=== PATIENT | male | born 1955 | race Caucasian/White ===

== ENCOUNTER 2020-10-09 19:34 | Observation (INO) | payer OTHER, SELFPAY ==
[2020-10-09] VITALS (7 sets, daily range): BP systolic 106–140; BP diastolic 60–83; PULSE 51–79; RESP 14–22; TEMP 37.2; O2SAT 93–98; BMI 40.1
--- NOTE | 2020-10-09 20:29 | EKG12_ITS ---
Test Reason : COUGH Blood Pressure : / mmHG Vent. Rate : 070 BPM Atrial Rate : 070 BPM P-R Int : 196 ms QRS Dur : 102 ms QT Int : 426 ms P-R-T Axes : 041 001 017 degrees QTc Int : 460 ms Normal sinus rhythm Normal ECG Confirmed by CAROLIN MCCONNELL, TRUE ([id number]), online editor INES MAHMOOD ([id number]) on 10/14/2020 10:52:24 AM Referred By: PITER Confirmed By:TRUE COE MD
--- NOTE | 2020-10-09 20:47 | ED.RN ---
NO OLD EKGS IN MUSE
[2020-10-09 21:14] LABS: Absolute Lymphocyte Count 0.85 X10^3/uL (0.83-4.51); Absolute Neutrophil Count 4.8 X10^3/uL (2.0-7.7); Basophil# 0.01 X10^3/uL; Basophil% 0.2 % (0-1); Eosinophil# 0.09 X10^3/uL; Eosinophils% 1.4 % (0-5); Hematocrit 40.2 % (40-54); Hemoglobin 13.2 g/dL (13.0-16.5); Lymphocyte # 0.85 X10^3/ul (4.0); Lymphocyte % 13.1 % (19-41); Mean Corp Hgb Conc 32.8 g/dL (32-36); Mean Corpuscular Hgb 30.5 pg (27.0-32.0); Mean Corpuscular Volume 92.8 fL (80-94); Mean Platelet Vol. 10.2 fl (6.2-12.0); Monocyte# 0.72 X10^3/uL; Monocyte% 11.1 % (0-10); NRBC Flagged by Analyzer 0 % (0-5); Neutrophil # 4.76 X10^3/uL (2.7-7.7); Neutrophil % 73.6 % (47-70); Platelet Count 228 K/mm3 (150-450); RBC Distribution Width CV 12.3 % (11.6-14.6); RBC Distribution Width SD 42.6 fl (35.1-43.9); Red Blood Count 4.33 M/mm3 (4.6-6.2); White Blood Count 6.5 K/mm3 (4.4-11.0)
[2020-10-09 21:35] LABS: ALB/GLOB Ratio 0.9 RATIO (0.9-2.4); AST(SGOT) 47 U/L (15-37); Alanine Aminotransfer ALT/SGPT 72 U/L (16-61); Albumin, Serum 3.3 g/dL (3.2-5.0); Alkaline Phosphatase 90 U/L (45-117); Anion Gap 5 (5-15); BUN 13 mg/dL (7-18); BUN/Creat Ratio 15.5 RATIO (10-20); Calcium,Total 8.5 mg/dL (8.5-10.1); Chloride 104 mmol/L (98-107); Creatinine, Serum 0.84 mg/dL (0.70-1.30); EST Glomerular Filtration Rate 98 mL/min (>60); Est Glom Filt Rate - Afr Amer 118 mL/min (>60); Estimated Creatinine Clearance 91.73 ml/min; Globulin 3.8 g/dL (2.2-4.2); Glucose 136 mg/dL (74-106); Potassium 3.6 mmol/L (3.5-5.1); Protein, Total 7.1 g/dL (6.4-8.2); Sodium Level 137 mmol/L (136-145)
--- NOTE | 2020-10-09 21:37 | RAD_ITS ---
INDICATION: cough EXAMINATION/TECHNIQUE: X-RAY - XR Chest 1 View COMPARISON: None. FINDINGS: Bilateral interstitial and airspace opacities. The cardiomediastinal silhouette is unremarkable. No pleural effusion or pneumothorax. No acute osseous abnormalities. RAD/Chest 1 View (Portable) IMPRESSION: Bilateral interstitial and airspace opacities concerning for pneumonia. Electronically Signed: Del Chow MD at 22:08 EDT Tel , Service support ,
[2020-10-09 21:47] LABS: Lactic Acid 1.7 mmol/L (0.4-1.9)
[2020-10-10] VITALS (11 sets, daily range): BP systolic 117–155; BP diastolic 75–80; PULSE 66–74; RESP 14–19; TEMP 36.6–37.1; O2SAT 91–97; BMI 40.4
--- NOTE | 2020-10-10 00:26 | ED.DCSUM_ITS ---
- ER Visit Summary Date of Service: 10/10/20 Chief Complaint: Shortness of breath and fatigue History of Present Illness: The patient is a 65 M who presents with shortness of breath and fatigue that is been getting worse over the past 5 days. Patient states he feels weak all over. Patient states his breathing is worse whenever he lays down. Patient had a fever of 101.6 at home. Patient denies any chills. Patient does admit to a cough but denies any sputum production. Patient states his is currently in ICU with COVID-19. Patient states he tested positive for COVID-19 5 days ago. Patient denies any chest pain. Physical Examination: Eitel signs are stable except for mild tachypnea of 22. Patient is afebrile. Patient is in no acute distress. Oral mucosa is pink and moist. Neck is supple. Trachea is midline. There is no JVD. Heart was regular rate and rhythm. Lungs showed few rales in the right base. There is good respiratory effort noted. Abdomen is soft. Bowel sounds are normal. There is no tenderness. Cranial nerves II through XII are intact. There are no focal motor or sensory deficits noted. Extremities are intact. There is no calf tenderness or edema. Test Results: EKG was obtained. On my interpretation, it showed a normal sinus rhythm with a rate of 70. [place] interval, QRS interval, and QTc intervals were all normal. [place] was normal. There are no acute ST or T wave changes. Portable chest x-ray was obtained. There is 1 view. On my interpretation, there is bilateral interstitial infiltrates. Bony thorax is normal. There is no cardiomegaly noted. Radiologist also interpreted the x-ray and agrees. COVID- 19 rapid antigen was obtained and was negative. Since the patient had a positive COVID-19 test 5 days ago, I believe this is a false negative. Emergency Department Course and Treatment: Patient was given albuterol inhaler here. Patient was ambulated with pulse oximeter and his pulse oximeter dropped to 89% while ambulating. Also while he was laying in the bed his pulse oximeter dropped to 86% at times. Family states that when the patient would cough his pulse oximeter reading would go back up to 92 to 93%. Patient was given a dose of Decadron here. Case was discussed with the hospitalist. He will admit the patient for observation. Family understood and were agreeable with the plan. All questions were answered. Disposition: Admit for observation Impression: 1. COVID-19 pneumonia This note was generated with [employer] dictation software. It may contain incorrect words, spelling, and punctuation that were not noted in review of the chart prior to signing ED Disposition - Plan for ED Patient: [facility] Diagnosis: Pneumonia due to COVID-19 virus Referrals: Theron Stewart MANUFACTURING INSPECTOR, MANUFACTURING INSPECTOR-C [Primary Care Provider] -
[2020-10-10] MEDS: dexAMETHasone 10 MG/ML Vial 6 MG IV (00:44)
--- NOTE | 2020-10-10 01:41 | PCM.HP.STD ---
History of Present Illness Date of Admission: 10/10/20 Chief Complaint: Cough and shortness of breath The patient is a 65 year old M with PMH as below presents to the hospital with shortness of breath and fatigue. Symptoms started on and then he tested positive for Covid as an outpatient on Monday. Repeat Covid antigen testing here was negative however based on his chest x-ray showing bilateral pneumonia it is felt that he has Covid pneumonia. His is here in the hospital currently intubated secondary to Covid. He presented today because symptoms just have not improved. In the ER he is oxygenating just fine at rest being 97% on room air however with any coughing fit he drops to below 90% and with ambulation he was down to 88% and periodically he would drop down to 86% while laying in bed. Denies any fevers or chills. No leukocytosis. Past Medical History Allergies No Known Allergies Allergy (Verified 10/09/20 19:35) Home Medications: Ambulatory Orders Medication Instructions Recorded Aspirin [Aspirin, Baby] 81 mg PO DAILY@0800 10/09/20 Atorvastatin Calcium [Lipitor] 20 mg PO QHS 10/09/20 Bisoprolol/Hydrochlorothiazide 1 each PO DAILY 10/09/20 [Bisoprolol-Hctz 2.5-6.25 mg Tb] Glucos Sul 2Kcl/MSM/Chond/C/Mn 1 each PO TID 10/09/20 [Glucosamine Chondroitin Cap] Valsartan 160 mg PO DAILY 10/09/20 Surgical History: - - Cardiac stent in 2011 Smoking Status: Never smoker Alcohol: None Drugs: None - *Family History Maternal History Items: COPD, Diabetes, Heart Disease Paternal History Items: COPD, Diabetes Review of Systems Constitutional: Reports: Fatigue. Denies: Chills, Fever HEENT: Denies: Head Aches, Sinus Congestion, Sinus Drainage Cardiovascular: Denies: Chest Pain, Palpitations Respiratory: Reports: Cough, Shortness of Breath. Denies: Shortness of breath at rest, Sputum production Gastrointestinal: Denies: Abdominal Pain, Nausea, Vomiting Genitourinary: Denies: Dysuria Musculoskeletal: Denies: Joint Pain, Joint Tenderness Skin: Denies: Rash, Wounds Neurological: Denies: Numbness, Tingling, Focal weakness Psychiatric: Denies: Anxiety, Depression Hematologic/ Lymphatic: Denies: Easy Bruising, Easy Bleeding VTE Information - Inpt Only VTE Present on Admission: No Patient Problems: Active and Suspected Problems Pneumonia due to COVID-19 virus (Acute) - Physical Exam Vitals/I&O's: Vital Signs Temp Pulse Resp BP Pulse Ox 98.8 F 70 14 122/77 H 94 10/10/20 00:46 10/10/20 00:46 10/10/20 00:46 10/10/20 00:46 10/10/20 00:46 Oxygen Delivery Method Room Air Weight: 280 lb Body Mass Index (BMI) 40.1 General: Alert, Oriented x3, Cooperative, No apparent distress HEENT: Atraumatic, PERRLA, EOMI, Normocephalic Oral: Moist Mucosa Neck: Supple, No JVD Lungs: Normal air movement, No rhonchi, No wheeze, No rales, Diminished Cardiovascular: Regular rate, Regular Rhythm, Normal S1, Normal S2, No murmurs Abdomen: Soft, Non Tender, Non-Distended, No Hepato-splenomegaly Extremities: No edema, Capillary Refill Less than 3 Seconds Skin: No rashes, No breakdown Neurological: Neuro grossly intact, Sensory exam intact to light touch and pain Psych/Mental Status: Normal Affect, Appropriate Microbiology Past 72 Hours 10/09/20 22:00 Mucosa - Nasopharyngeal SARS-CoV-2 Antigen (Rapid) - Final Laboratory Results 10/09/20 21:00: Sodium 137, Potassium 3.6, Chloride 104, Carbon Dioxide 28.0, Anion Gap 5, BUN 13, Creatinine 0.84, Estim Creat Clear Calc 91.73, Est GFR (MDRD) Af Amer 118, Est GFR (MDRD) Non-Af 98, BUN/Creatinine Ratio 15.5, Glucose 136 H, Calcium 8.5, Total Bilirubin 1.00, AST 47 H, ALT 72 H, Alkaline Phosphatase 90, Troponin I < 0.015, Total Protein 7.1, Albumin 3.3, Globulin 3.8, Albumin/Globulin Ratio 0.9 10/09/20 21:00: WBC 6.5, RBC 4.33 L, Hgb 13.2, Hct 40.2, MCV 92.8, MCH 30.5, MCHC 32.8, RDW Std Deviation 42.6, RDW Coeff of Chaim 12.3, Plt Count 228, MPV 10.2, Immature Gran % (Auto) 0.600, Neut % (Auto) 73.6 H, Lymph % (Auto) 13.1 L, [place] % (Auto) 11.1 H, Eos % (Auto) 1.4, Baso % (Auto) 0.2, Absolute Neuts (auto) 4.8, Absolute Lymphs (auto) 0.85, Nucleated RBC % 0 10/09/20 21:00: Lactic Acid 1.7 Assessment/Plan All Active Problems Pneumonia due to COVID-19 virus (Acute) 1. Acute hypoxic insufficiency secondary to COVID-19 pneumonia -Oxygenation with ambulation dropped to 89%. On occasion he is dropping down to 86% but would recover promptly into the mid 90s on room air -Continue with Decadron, will obtain a D-dimer and will start him on remdesivir since symptoms have been going on for less than 10 days -We will also obtain an ambulatory pulse ox to see if he qualifies for oxygen prior to discharge -Chest x-ray with mild bilateral airspace disease -Incentive spirometer 2. CAD status post stent/HTN/HLD -Blood pressure stable -Continue with bisoprolol and hydrochlorothiazide as well as valsartan -Continue with aspirin -Continue with Lipitor DVT: Lovenox OBSV E&M: 63051 Initial observation care L3
[2020-10-10 04:44] LABS: Absolute Lymphocyte Count 0.53 X10^3/uL (0.83-4.51); Absolute Neutrophil Count 4.4 X10^3/uL (2.0-7.7); Basophil# 0.01 X10^3/uL; Basophil% 0.2 % (0-1); Eosinophil# 0.01 X10^3/uL; Eosinophils% 0.2 % (0-5); Hematocrit 38.6 % (40-54); Hemoglobin 12.8 g/dL (13.0-16.5); Lymphocyte # 0.53 X10^3/ul (4.0); Lymphocyte % 10.2 % (19-41); Mean Corp Hgb Conc 33.2 g/dL (32-36); Mean Corpuscular Hgb 30.8 pg (27.0-32.0); Mean Platelet Vol. 10.4 fl (6.2-12.0); Monocyte# 0.28 X10^3/uL; Monocyte% 5.4 % (0-10); NRBC Flagged by Analyzer 0 % (0-5); Neutrophil # 4.35 X10^3/uL (2.7-7.7); Neutrophil % 83.6 % (47-70); POSITIVE DIFFERENTIAL YES; Platelet Count 223 K/mm3 (150-450); RBC Distribution Width CV 12.3 % (11.6-14.6); RBC Distribution Width SD 42.3 fl (35.1-43.9); Red Blood Count 4.15 M/mm3 (4.6-6.2); White Blood Count 5.2 K/mm3 (4.4-11.0)
[2020-10-10 05:01] LABS: ALB/GLOB Ratio 0.8 RATIO (0.9-2.4); AST(SGOT) 37 U/L (15-37); Alanine Aminotransfer ALT/SGPT 67 U/L (16-61); Albumin, Serum 3.3 g/dL (3.2-5.0); Alkaline Phosphatase 89 U/L (45-117); Anion Gap 5 (5-15); BUN 14 mg/dL (7-18); BUN/Creat Ratio 15.4 RATIO (10-20); Calcium,Total 8.5 mg/dL (8.5-10.1); Chloride 103 mmol/L (98-107); Creatinine, Serum 0.91 mg/dL (0.70-1.30); EST Glomerular Filtration Rate 89 mL/min (>60); Est Glom Filt Rate - Afr Amer 108 mL/min (>60); Estimated Creatinine Clearance 84.68 ml/min; Globulin 3.9 g/dL (2.2-4.2); Glucose 209 mg/dL (74-106); Potassium 3.7 mmol/L (3.5-5.1); Protein, Total 7.2 g/dL (6.4-8.2); Sodium Level 136 mmol/L (136-145)
[2020-10-10 05:07] LABS: Differential Indicated SCAN CRITERIA MET
[2020-10-10 10:12] LABS: D-Dimer Quantitative (DVT/PE) 1.08 FEU/ug/m (0.27-0.49)
--- NOTE | 2020-10-10 10:55 | CASEMGMT ---
AMISHA MARISCAL Assessment: TC to pt room for initial transition planning/care coordination assessment due to isolation precautions. AMISHA MARISCAL introduced self and role at [facility], pt voices understanding and consents to assessment. Pt is A/O x4 and answers all questions appropriately at this time. Care providers, pharmacy, and demographics verified/updated. Admitting Dx: COVID 19 pna PCP: Norberto Stewart DATA WAREHOUSING MANAGER Specialists: Denies specialists Preferred Pharmacy: [facility] Insurance: [employer] Prescription Benefit: yes LW/HPOA: Pt reports having and LW and DPOA. He is aware it is not on file at [facility]. States DPOA is his Leti. LNOK: Leti and dtr Dana Masters Living Arrangements: Pt lives in a 2 story home with 3-4 steps to enter without a rail with his and his mother and mother in law.Pt states he is I in ADL's and denies any concerns at home. Transportation: Pt reports he drives and denies concerns with transportation. DME/HHC/SNF: Pt has a cane and walker. Denies need for further DME. Pt denies having any previous HHC or SNF stays. Pt provided with a list of local in network DME companies. Pt chooses [facility] should he need O2 at dc. Pt reports his mother in law is also covid +, his is in [facility] ICU with covid and his mother has had the vaccine. Pt states he is able to quarantince at home and his daughter is able to provide groceries. Pt states no concerns with going home at time of dc. Pt states no further concerns/needs. CM to follow for O2 needs and Advised pt to ask CM if any further question/concerns/needs arise, voices understanding. Pt Goal: Home Plan: Home with family support, follow for O2. Green sheet on chart.
[2020-10-10] MEDS: dexAMETHasone 4 MG Tablet 6 MG PO (12:23)
[2020-10-10] MEDS: Aspirin 81 MG TAB.CHEW PO (12:23)
[2020-10-10] MEDS: Losartan Potassium 50 MG Tablet PO (12:24)
[2020-10-10] MEDS: hydroCHLOROthiazide 6.25mg TAB 6.25 MG PO (12:24)
[2020-10-10] MEDS: Bisoprolol Fumarate 5 MG Tablet 2.5 MG PO (12:24)
[2020-10-10] MEDS: Enoxaparin 30 MG/0.3 ML Syringe SC (12:29)
[2020-10-10] MEDS: guaiFENesin 10 ML UDC (200MG/10ML) 20 ML PO (12:33)
--- NOTE | 2020-10-10 13:46 | DCINST_ITS ---
- Discharge Diagnoses Current Active Problems: Current Active and Chronic Problems Pneumonia due to COVID-19 virus (Acute) You will use the following diet at home:: No restrictions Your food should be the consistency of: Regular Your liquids should be the consistency of: Regular/Thin Discharge Activity: Return to Normal Activity, - - Quarantine for a total of ten days after symptoms started Additional Instructions: Return to ER for evaluation if having increasing shortness of breath Allergies/Adverse Reactions: Allergies No Known Allergies Allergy (Verified 10/09/20 19:35) Medications to take at Discharge Aspirin [Aspirin, Baby] 81 mg PO DAILY@0800 10/09/20 Atorvastatin Calcium [Lipitor] 20 mg PO QHS 10/09/20 Bisoprolol/Hydrochlorothiazide [Bisoprolol-Hctz 2.5-6.25 mg Tb] 1 each PO DAILY 10/09/20 Glucos Sul 2Kcl/MSM/Chond/C/Mn [Glucosamine Chondroitin Cap] 1 each PO TID 10/09/20 Valsartan 160 mg PO DAILY 10/09/20 Dexamethasone [Decadron] 6 mg PO DAILY #27 tablet 10/10/20 The following prescriptions were given: Dexamethasone [Decadron] 6 mg PO DAILY #27 tablet Transmission Status: Pending to [facility]/pharmacy #[id number] Primary Care Physician: Theron Stewart EFFERVESCENT SALTS COMPOUNDER, EFFERVESCENT SALTS COMPOUNDER-C [Primary Care Provider] - Please follow up with your Primary Care Physician in: in two weeks Test Results: Test results from this visit will be discussed in further detail at your follow- up appointment, if applicable.
--- NOTE | 2020-10-10 14:26 | CASEMGMT ---
According to nurse charting, pt does not qualify for home O2.
--- NOTE | 2020-10-10 18:10 | DS.PCM_ITS ---
Discharge Date and Diagnosis - Problem List Patient Problems: Active and Suspected Problems Pneumonia due to COVID-19 virus (Acute) Date of Admission: 10/10/20 Date of Discharge: 10/10/20 - Primary Discharge Diagnosis Acute Problems: Active Problems #1 pneumonia due to COVID-19 virus (Acute) #2 hypoxia secondary to #1 #3 hyperlipidemia #4 hypertension Hospital Course and Treatment Operations: None Procedures: None Summary of Care Provided: The patient is a 65 year old M was seen in the emergency room at [facility] with chief complaint of shortness of breath and fatigue over 5 days. Patient's was currently in the hospital with COVID-19 pneumonia. Patient stated that he tested positive for COVID-19 approximately 5 days ago. Work-up in the emergency room included a chest x-ray which showed bilateral interstitial infiltrates, COVID-19 rapid antigen was obtained and was negative.- It was believed this was a false negative result due to the fact the patient had had an outpatient positive Covid test. Patient was given an albuterol inhaler, he was ambulated with pulse oximeter and the pulse oximeter dropped to 89% while ambulating. Patient also dropped to 86% on room air at times while lying in bed and talking. Patient was given a dose of Decadron in the emergency room, he was placed in observation status on MedSurg 2 and given remdesivir. Later that day, he was checked on room air was found not to be hypoxic, he was also ambulated in his room and found not to be hypoxic. Patient CBC was unremarkable On 10/10/2020, patient was seen and examined: On examination he appeared in good health and spirits. Vital signs as documented. Skin warm and dry and without overt rashes. Neck without JVD, neck was supple, trachea midline, thyroid was normal. Lungs clear bilaterally, normal air movement was noted. Heart exam notable for regular rhythm, normal sounds and absence of murmurs, rubs or gallops. Abdomen unremarkable and without evidence of organomegaly, masses, or abdominal aortic enlargement. Bowel sounds are present, abdomen is not distended. Extremities nonedematous, no cyanosis was noted, no clubbing was noted. Neuro: Cranial nerves II through XII are grossly intact, no focal motor deficits were noted, sensation to light touch and pinprick intact, motor exam 5/ 5 throughout. Psych: Patient is alert and oriented x3, he does not appear anxious or depressed, he does not appear agitated. Patient was felt to be stable for discharge on 10/10/2020, he was told he should come back to the hospital if he became more short of breath and he was told that he may have to be readmitted due to worsening symptoms in the near future. Patient Problems: Active and Suspected Problems Pneumonia due to COVID-19 virus (Acute) - Physical Exam Vitals/I&O's: Vital Signs Temp Pulse Resp BP Pulse Ox 98.0 F 66 18 142/80 H 94 10/10/20 14:00 10/10/20 14:00 10/10/20 14:00 10/10/20 14:00 10/10/20 14:00 Oxygen Flow Rate (L/min) 1 Oxygen Delivery Method Room Air Weight: 127.868 kg Body Mass Index (BMI) 40.4 Intake and Output for Last 24 Hours 10/08/20 10/09/20 10/10/20 23:59 23:59 23:59 Intake Total 240 / 240 Balance 240 / 240 Microbiology Past 72 Hours 10/09/20 22:00 Mucosa - Nasopharyngeal SARS-CoV-2 Antigen (Rapid) - Final Laboratory Results 10/09/20 21:00: Sodium 137, Potassium 3.6, Chloride 104, Carbon Dioxide 28.0, Anion Gap 5, BUN 13, Creatinine 0.84, Estim Creat Clear Calc 91.73, Est GFR (MDRD) Af Amer 118, Est GFR (MDRD) Non-Af 98, BUN/Creatinine Ratio 15.5, Glucose 136 H, Calcium 8.5, Total Bilirubin 1.00, AST 47 H, ALT 72 H, Alkaline Phosphatase 90, Troponin I < 0.015, Total Protein 7.1, Albumin 3.3, Globulin 3.8, Albumin/Globulin Ratio 0.9 10/09/20 21:00: WBC 6.5, RBC 4.33 L, Hgb 13.2, Hct 40.2, MCV 92.8, MCH 30.5, MCHC 32.8, RDW Std Deviation 42.6, RDW Coeff of Chaim 12.3, Plt Count 228, MPV 10.2, Immature Gran % (Auto) 0.600, Neut % (Auto) 73.6 H, Lymph % (Auto) 13.1 L, [place] % (Auto) 11.1 H, Eos % (Auto) 1.4, Baso % (Auto) 0.2, Absolute Neuts (auto) 4.8, Absolute Lymphs (auto) 0.85, Nucleated RBC % 0 10/09/20 21:00: Lactic Acid 1.7 10/10/20 04:20: WBC 5.2, RBC 4.15 L, Hgb 12.8 L, Hct 38.6 L, MCV 93.0, MCH 30.8, MCHC 33.2, RDW Std Deviation 42.3, RDW Coeff of [place]aim 12.3, Plt Count 223, MPV 10.4, Immature Gran % (Auto) 0.400, Neut % (Auto) 83.6 H, Lymph % (Auto) 10.2 L, [place] % (Auto) 5.4, Eos % (Auto) 0.2, Baso % (Auto) 0.2, Absolute Neuts (auto) 4.4, Absolute Lymphs (auto) 0.53 L, Nucleated RBC % 0 10/10/20 04:20: Sodium 136, Potassium 3.7, Chloride 103, Carbon Dioxide 28.0, Anion Gap 5, BUN 14, Creatinine 0.91, Estim Creat Clear Calc 84.68, Est GFR (MDRD) Af Amer 108, Est GFR (MDRD) Non-Af 89, BUN/Creatinine Ratio 15.4, Glucose 209 H, Calcium 8.5, Total Bilirubin 1.20 H, AST 37, ALT 67 H, Alkaline Phosphatase 89, Total Protein 7.2, Albumin 3.3, Globulin 3.9, Albumin/Globulin Ratio 0.8 L 10/10/20 09:45: D-Dimer Quant (PE/DVT) 1.08 H* Discharge Activity: Return to Normal Activity, - - Quarantine for a total of ten days after symptoms started Home Medications: Medications to take at Discharge Aspirin [Aspirin, Baby] 81 mg PO DAILY@0800 10/09/20 Atorvastatin Calcium [Lipitor] 20 mg PO QHS 10/09/20 Bisoprolol/Hydrochlorothiazide [Bisoprolol-Hctz 2.5-6.25 mg Tb] 1 each PO DAILY 10/09/20 Glucos Sul 2Kcl/MSM/Chond/C/Mn [Glucosamine Chondroitin Cap] 1 each PO TID 0 10/09/20 Valsartan 160 mg PO DAILY 10/09/20 Dexamethasone [Decadron] 6 mg PO DAILY #27 tablet 10/10/20 Following Prescriptions Were Given to Patient: Dexamethasone [Decadron] 6 mg PO DAILY #27 tablet [facility]: [id number] Primary Care Physician: Theron Stewart BROADCAST METEOROLOGIST, BROADCAST METEOROLOGIST-C [Primary Care Provider] - Please follow up with your Primary Care Physician in: in two weeks Disposition: Home Minutes spent on discharge:: 30 Patient Condition:: Stable Medical Necessity - Tobacco Use Smoking Status: Former smoker Meaningful Use Info Meaningful Use Diagnoses (Choose all that apply): None applicable OBSV E&M: 71686 Observ/hosp same date L3
== END 2020-10-10 15:15 | disposition home or self-care (01) ==
LOC: ED 10-10 00:43 → ICU 10-10 02:27
PROVIDERS: Admitting Provider Family Medicine; Emergency Provider Emergency Medicine; PCP Nurse Practitioner Family; Visit Provider Internal Medicine
DX: U07.1 COVID-19 (principal); J12.82 Pneumonia due to coronavirus disease 2019; E78.5 Hyperlipidemia, unspecified; I10 Essential (primary) hypertension; R09.02 Hypoxemia; Z79.899 Other long term (current) drug therapy; Z79.82 Long term (current) use of aspirin; Z95.5 Presence of coronary angioplasty implant and graft; I25.10 Atherosclerotic heart disease of native coronary artery without angina pectoris; Z87.891 Personal history of nicotine dependence
CPT/HCPCS: 71045; 80053; 83605; 84484; 85025; 85379; 87040; 87426; 93005; 94640; 96372; 96374; 99218; 99285; J7030; J7050; A4216; G0378